=== PATIENT | female | born 1935 | race Two or more races ===

== ENCOUNTER 2022-09-10 13:18 | Emergency (ER) | payer OTHER ==
[~2022-09-10] VITALS: Ht 162.6 cm; Wt 68.0 kg
[2022-09-10] MEDS ORDERED: PRADAXA75 MG (14:05)
[2022-09-10] MEDS ORDERED: TENORMIN25 MG (14:05)
[2022-09-10] MEDS ORDERED: SYNTHROID75 MCG (14:05)
[2022-09-10] MEDS ORDERED: CARDIZEM CD180 M1 (14:06)
[2022-09-10] MEDS ORDERED: LATANOPROST2.5 ML (14:07)
[2022-09-10] MEDS ORDERED: COMBIGAN EYE DRO5 ML (14:07)
[2022-09-10] MEDS ORDERED: ACIDOPHILUS1 EAC3 (14:08)
[2022-09-10] MEDS ORDERED: METOTREXATO (14:09)
== END 2022-09-10 18:40 | disposition home or self-care (01) ==
LOC: ER 13:18
DX: L03.116 Cellulitis of left lower limb (principal)

== ENCOUNTER 2022-09-12 11:09 | Inpatient (IN) | payer OTHER ==
[~2022-09-12] VITALS: Ht 162.6 cm; Wt 68.0 kg
[~2022-09-12 11:09] MED LIST: ACIDOPHILUS1 EAC3; CARDIZEM CD180 M1; COMBIGAN EYE DRO5 ML; LATANOPROST2.5 ML; METOTREXATO; PRADAXA75 MG; SYNTHROID75 MCG; TENORMIN25 MG
--- NOTE | 2022-09-12 11:58 | NUR ---
SE RECIBE PTE ALERTA Y ORIENTADO X3 FAMILAIR REFIERE QUE LA PTE SE GARY Y SE KOLBY LADO CATALINA DE LA CARLOS, PTE SE OBSERVA CON CELLULITIS PIE CATALINA DESDE LLEVA AL REDEDOR DE 2 SEMANAS CON EL PIE HINCHADO, PTE REFIERE QUE TENIA OPAL HOY PARA REALIZARCE DUPPLER HOY 9AM Y DEBIDO A LA CAIDO QUE TUVO NO PUDO REALIZARCE EL ESTUDIO CORRESPONDINETE. PTE TIENE MARCAPASO . SE ELROY VITALES Y SE DRAKE EN OBSERVACION.
--- NOTE | 2022-09-12 13:14 | NUR ---
PTE EVALUADO POR DR. ROMO SE EJECUTA ORDEN EN [place] TOTALIDAD, SE ELROY MUESTRA BAJO MEDIAS ASEPTICAS Y SE ORIENTA PTE SOBRE EL PROCEDIMIENTO PTE REFIERE ENTENDER.
--- NOTE | 2022-09-12 13:28 | NUR ---
PACIENTE ALERTA Y ORIENTADA POR RADHA. SE ORIENTA DE TRATAMIENTO ROOSEVELT ORDEN MEDICA. REFIERE ENTENDER. SE ELROY MUESTRAS Y SE CANALIZA CON MEDIDAS ASEPTICAS CORRESPONDIENTES. EN ESPERA DE ESTUDIOS PENDIENTES YA NOTIFICADOS.
[2022-09-12] MEDS ORDERED: TREXALL5 MG (21:12)
[2022-09-13] MEDS ORDERED: MIRTAZAPINE15 MG (14:02)
[2022-09-13] MEDS ORDERED: DICLOFENAC POTA50 MG (14:02)
[2022-09-13] MEDS ORDERED: LEVALBUTEROL TA15 GM (14:02)
== END 2022-09-21 20:09 | disposition home or self-care (01) | DRG 602 ==
LOC: ER 11:09 → MEDI 20:40 → SEC-K 20:40 → ICU-2 20:40 → SEC-K 21:05 → MEDI 09-13 14:40
PROVIDERS: ADMIT Specialist; ATTEND Specialist
PROC: B54CZZZ Ultrasonography of Left Lower Extremity Veins (ICD-10-PCS; principal; 2022-09-12)
PROC: BQ3FZZZ Magnetic Resonance Imaging (MRI) of Left Lower Leg (ICD-10-PCS; 2022-09-13)
PROC: BW28ZZZ Computerized Tomography (CT Scan) of Head (ICD-10-PCS; 2022-09-18)
DX: L03.116 Cellulitis of left lower limb (principal); G93.41 Metabolic encephalopathy; M31.30 Wegener's granulomatosis without renal involvement; E87.1 Hypo-osmolality and hyponatremia; E86.0 Dehydration; E87.8 Other disorders of electrolyte and fluid balance, not elsewhere classified; M54.42 Lumbago with sciatica, left side; I10 Essential (primary) hypertension; E03.9 Hypothyroidism, unspecified; I48.0 Paroxysmal atrial fibrillation; Z95.0 Presence of cardiac pacemaker
CPT/HCPCS: 73725